=== PATIENT | female | born 1930 | race Caucasian/White ===

== ENCOUNTER 2016-03-11 23:42 | Emergency (ER) | payer BC ==
[~2016-03-11] VITALS: Ht 162.6 cm; Wt 55.8 kg
[~2016-03-11 23:42] MED LIST: ACET-1311 PO; AMLO2.5T PO; ASPI81TA28 PO; ATEN-173 PO; CARB25TA12 PO; CEPH500C PO; CHOL1CAP57 PO; CIPR-255 PO; CLC100 PO; CLOP1TAB15 PO; DONE10TA12 PO; FSLUDL325 PO; IMD/2 PO; LEVO75TA5 PO; LORA-741 PO; OSEL30CA PO; POTA-327 PO; RASA1TAB PO; SIMV20TA2 PO; [UNRECOGNIZED DRUG - CODE] TD
[2016-03-11 23:49] VITALS: TEMP 36.5; Ht 162.6 cm; Wt 55.8 kg
--- NOTE | 2016-03-12 00:01 | EMERGENCY ROOM VISIT NOTE ---
History Report prepared by Bobby: Shaniqua Randhawa Under the Supervision of: Dr. Santos Alfred M.D. First contact with patient: 23:52 Chief Complaint: FALL Stated Complaint: FALL History of Present Illness The patient is a 85 year old female who presents to the Emergency Room to be evaluated status post fall this evening. The patient notes that she lost her balance and fell, hitting the back of her head. She lives at [facility] but the fall was unwitnessed. She did not lose consciousness. Denies headache, neck pain , chest pain, shortness of breath, nausea, vomiting, extremity pain, or other complaints. Source of History: patient Onset: this evening Position: other (global) Quality: other (fall) Timing: resolved Associated Symptoms: No SOB, No chest pain, No headache, No nausea, No neck pain, No vomiting Review of Systems See HPI for pertinent positives & negatives. A total of 10 systems reviewed and were otherwise negative. Past Medical & Surgical Medical Problems: (1) CAD (coronary artery disease) (2) HLD (hyperlipidemia) (3) HTN (hypertension) (4) Hypothyroidism (5) Parkinson's disease dementia (6) TIA (transient ischemic attack) Surgical Problems: (1) unknown surgical history Family History Omitted due to advanced age Social History Smoking Status: Never Smoker Marital Status: Housing Status: residential Occupation Status: retired Current/Historical Medications Scheduled Acetaminophen (Tylenol), 650 MG PO QAM Amlodipine (Norvasc), 2.5 MG PO DAILY Aspirin (Aspirin Ec), 81 MG PO DAILY Carbidopa/Levodopa (Sinemet 25MG/100MG), 2 TABS PO BID Carbidopa/Levodopa (Sinemet 25MG/100MG), 1 TAB PO BID Cholecalciferol (Vitamin D3), 1,000 UNITS PO DAILY Clopidogrel (Plavix), 75 MG PO DAILY Donepezil Hydrochloride (Aricept), 10 MG PO HS Ferrous Sulfate (Ferrous Sulfate), 7.4 ML PO BID Levothyroxine Sodium (Levothyroxine Sodium), 75 MCG PO DAILY Lorazepam (Ativan), 0.25 MG PO 0900 Lorazepam (Ativan), 0.5 MG PO 1600 Oseltamivir Phosphate (Tamiflu), 1 CAP PO QPM Potassium Chloride (Micro-K Ext Rel), 10 MEQ PO BID Rasagiline Mesylate (Azilect), 1 MG PO DAILY Rotigotine (Neupro), 6 MG TD DAILY Simvastatin (Zocor), 20 MG PO HS Scheduled PRN Acetaminophen (Tylenol), 650 MG PO Q4 PRN for Pain or Fever Docusate Sodium (Docusate Sodium), 1 CAP PO BID PRN for Constipation Loperamide Hcl (Imodium), 2 MG PO Q4 PRN for Diarrhea Lorazepam (Ativan), 0.5 MG PO Q6H PRN for Anxiety Allergies Coded Allergies: Metronidazole (Verified Allergy, Mild, 03/12/16) Penicillins (Verified Allergy, Mild, 03/12/16) Physical Exam Vital Signs Date Time Temp Pulse Resp B/P Pulse Ox O2 Delivery O2 Flow Rate FiO2 03/12/16 01:22 80 16 204/82 98 Room Air 03/12/16 00:51 73 16 209/76 100 Room Air 03/12/16 00:01 69 03/11/16 23:49 36.5 81 18 214/84 100 Room Air Physical Exam GENERAL: Patient is elderly, demented, and in no acute distress. HEENT: Moderate cephalohematoma left low occipital scalp. mucous membranes moist , no nasal congestion, no scleral icterus. NECK: No stridor, no adenopathy, no meningismus, trachea is midline. LUNGS: No dyspnea. Clear to auscultation and equal bilaterally. No wheeze, no rhonchi. HEART: Regular rate and rhythm. Systolic murmur. No rubs or gallops appreciated. ABDOMEN: Soft, nontender, bowel sounds positive, no masses appreciated, no peritonitis. BACK: No midline tenderness, no CVA tenderness EXTREMITIES: Normal motion all extremities, no cyanosis, no edema. NEUROLOGIC: Alert and oriented, no acute motor or sensory deficits, no focal weakness, cranial nerves grossly intact. SKIN: No rash, no jaundice, no diaphoresis. Medical Decision & Procedures ER Provider Diagnostic Interpretation: CT results as stated below per interpretation by me and the radiologist: CT HEAD: No ICH, mass effect or edema. No skull fracture. Atrophy/white matter changes. 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 Mucosal thickening right paranasal sinuses. Comparison study dated 12/25/2015 CT C-SPINE: No acute fracture or malalignment. Extensive scoliotic and degenerative changes with scattered partial ankylosis. Heterogenous multinodular thyroid including a dominant 2.5 cm hypodense nodule; consider correlation with nonemergent follow-up thyroid sonogram. Radiologist: Vicente Brennan MD ED Course 2356: The patient was evaluated in room A10. A complete history and physical exam was performed. 0050: Nursing staff tried to get a blood pressure on the patient but she became very anxious. They will let her sleep before performing a repeat blood pressure. 0115: Reevaluated the patient. Discussed results and discharge instructions: She verbalized understanding and agreement. The patient is ready for discharge. Medical Decision Differential: Fracture, intracranial bleed, dissection, cause other than mechanical fall. 85 yr old female with mechanical fall at residential hitting back of left head. Given age and dementia felt that CT head plus cervical spine indicated though no neck pain. Small contusion posterior left scalp. No laceration. No shoulder, chest, pelvis TTP. She is modestly hypertensive which is chronic and given pain and coming to ED I am not surprised HTN thus have advised repeat as outpatient for recheck. CTs negative though non emergent finding thyroid nodule noted in discharge instructions. Impression Primary Impression: Fall Additional Impressions: Scalp contusion Head injury, closed Hypertension Thyroid nodule Scribe Attestation The scribe's documentation has been prepared under my direction and personally reviewed by me in its entirety. I confirm that the note above accurately reflects all work, treatment, procedures, and medical decision making performed by me. Departure Information Dispostion Home / Self-Care Referrals Meliton Yanes D.O. (PCP) Patient Instructions ED Mechanical Fall, [facility] Additional Instructions There were CT head and CT Cervical spine studies done showing no acute findings. She has evidence of a nodule in thyroid which can have outpatient follow up per her primary provider. Problem Qualifiers Primary Impression: Fall Encounter type: initial encounter Qualified Codes: W19.XXXA - Unspecified fall, initial encounter Additional Impressions: Head injury, closed Encounter type: initial encounter Qualified Codes: S09.90XA - Unspecified injury of head, initial encounter Hypertension Hypertension type: essential hypertension Qualified Codes: I10 - Essential ( primary) hypertension
[2016-03-12] MEDS ORDERED: FSLL PO (00:32)
[2016-03-12] MEDS ORDERED: POTA10CA28 PO (00:36)
[2016-03-12] MEDS ORDERED: DOCU100C31 PO (00:39)
--- NOTE | 2016-03-12 06:44 | DIAGNOSTIC IMAGING REPORT ---
CT HEAD WITHOUT CONTRAST (CT) CLINICAL HISTORY: Head pain. Head trauma. Patient on Plavix. Dementia. COMPARISON STUDY: 12/25/2015 TECHNIQUE: Axial CT of the brain is performed from the vertex to the skull base. IV contrast was not administered for this examination. CT DOSE: FINDINGS: No intra or extra-axial mass lesions are visualized. There is no CT evidence of acute cortical infarction. There is no evidence of midline shift. There is no acute hemorrhage. No calvarial fractures are visualized. There are patchy white matter hypodensities likely on a small vessel basis. There is an old lacunar infarct in the right thalamus. There is no evidence of pathologic ventricular dilatation. There is mild circumferential mucosal thickening within the right maxilla sinus. Several ethmoid air cells are opacified. There is mild mucosal thickening within the right frontal sinus. IMPRESSION: 1. No acute intracranial findings 2. Mucosal thickening within the right paranasal sinuses Electronically signed by: Payam Vigil M.D. 03/12/2016 6:43 AM Dictated Date/Time: 03/12/2016 6:41 AM
--- NOTE | 2016-03-12 06:48 | DIAGNOSTIC IMAGING REPORT ---
CT OF THE CERVICAL SPINE CLINICAL HISTORY: Neck pain status post trauma COMPARISON STUDY: No previous studies for comparison. CT DOSE: 954.21 mGy.cm TECHNIQUE: CT scan of the cervical spine was performed from the skull base to the thoracic inlet. Images are reviewed in the axial, sagittal, and coronal planes. IV contrast was not administered for this examination. FINDINGS: There is a multinodular left lobe of the thyroid with the largest nodule measuring 2.6 cm. Several calcifications are also visualized. There is no pneumothorax. The prevertebral soft tissues are normal. No fractures or subluxations are visualized. There are advanced multilevel degenerative changes. IMPRESSION: 1. Advanced multilevel degenerative change. No acute fractures or traumatic subluxations are visualized 2. Multinodular thyroid gland including a dominant 2.6 cm nodule. Electronically signed by: Payam Vigil M.D. 03/12/2016 6:46 AM Dictated Date/Time: 03/12/2016 6:43 AM
[2016-03-12 07:10] VITALS: BP 128/75; PULSE 69; O2SAT 97
== END 2016-03-12 07:32 | disposition home or self-care (01) ==
LOC: EDBD 23:42 → C.EDA 23:43
DX: S00.03XA Contusion of scalp, initial encounter (principal); I10 Essential (primary) hypertension; E04.1 Nontoxic single thyroid nodule; W19.XXXA Unspecified fall, initial encounter; Y92.129 Unspecified place in nursing home as the place of occurrence of the external cause; I25.10 Atherosclerotic heart disease of native coronary artery without angina pectoris; E03.9 Hypothyroidism, unspecified; G20 Parkinson's disease; Z86.73 Personal history of transient ischemic attack (TIA), and cerebral infarction without residual deficits; Z79.82 Long term (current) use of aspirin; Z79.02 Long term (current) use of antithrombotics/antiplatelets; Z88.0 Allergy status to penicillin